=== PATIENT | female | born 1940 | race Caucasian/White ===

== ENCOUNTER 2016-10-30 17:11 | Inpatient (IN) | payer MEDICARE, BC, MEDICAID ==
[~2016-10-30] VITALS: Ht 147.3 cm; Wt 49.6 kg
[~2016-10-30 17:11] MED LIST: ASPIRIN 81M81 MG/TA2 PO; BETIMOL 0.5% OPH5 ML OU; COUMADIN 22.5 MG/TAB PO; COUMADIN 5MG5 MG/TAB PO; HCTZ 25MG TAB25 MG PO; IPRATROPIUM BROM3 M1 IH; MILK OF MA400 MG/52; NORVASC 5MG5 MG/TAB PO; PRIL40 PO; XALATAN EYE DROPS OU
[2016-10-30 18:16] LABS: BASO % 0.4 % (0.0-2.0); EOS # 0.3 (0.0-0.7); EOS % 3.2 % (0-4.0); GRAN % 75.7 % (42.2-75.2); HEMOGLOBIN 12.9 g/dl (12.5-16.0); LYMPH # 1.3 (1.2-3.4); LYMPH % 14.3 % (20.0-51.0); MEAN CELL VOLUME 100 fl (80.0-100.0); MEAN CORPUSCULAR HEMOGLOBIN 32 pg (27.0-31.0); MEAN CORPUSCULAR HGB CONC 32 g/dl (33.0-37.0); MEAN PLATELET VOLUME 10.7 fl (7.4-10.4); MONO # 0.6 (0.1-0.6); PLATELET COUNT 196 K/mm3 (130-400); RED BLOOD COUNT 4.01 M/mm3 (4.10-5.30); REDCELL DISTRIBUTION WIDTH-CV 15.7 % (11.5-14.5); WHITE BLOOD COUNT 9.3 K/mm3 (4.8-10.8)
[2016-10-30 18:18] LABS: PROTHROMBIN TIME 39.4 SECONDS (9.7-12.8)
[2016-10-30 18:22] LABS: ALBUMIN 4.4 gm/dL (3.5-5.0); BILIRUBIN,TOTAL 3.2 mg/dL (0.0-1.0); CALCIUM 10.3 mg/dL (8.4-10.2); CREATININE, serum 1.11 mg/dL (0.52-1.25); POTASSIUM 4.3 mmol/L (3.4-5.0); TOTAL PROTEIN 8.3 gm/dL (6.4-8.2)
[2016-10-30 18:29] LABS: INR 3.4 (0.8-3.0)
[2016-10-30 18:36] LABS: TROPONIN-I 0.036 ng/mL (0.000-0.034)
[2016-10-30] MEDS ORDERED: NUEDEXTA 20 MG-1 CAP PO (19:32)
[2016-10-30] MEDS ORDERED: K-DUR 10 MEQ T10 MEQ PO (19:32)
[2016-10-30] MEDS ORDERED: COUMADIN 5MG5 MG/TAB PO (19:36)
[2016-10-30] MEDS ORDERED: NORVASC 10MG10 MG PO (19:37)
[2016-10-30] MEDS ORDERED: LASIX 40MG TABL40 MG PO (19:58)
[2016-10-30] MEDS ORDERED: PRINIVIL40 MG PO (19:58)
[2016-10-30] MEDS ORDERED: COREG 3.123.125 MG/T PO (19:58)
[2016-10-30 21:20] VITALS: BP 168/71; PULSE 55; TEMP 97.9
[2016-10-30 22:31] LABS: PH 7 (5-8); SQUAMOUS EPITHELIAL 0-2 /hpf; URINE APPEARANCE Clear; URINE BACTERIA None Seen /hpf; URINE BILIRUBIN Negative (NEGATIVE); URINE BLOOD Negative (NEGATIVE); URINE COLOR Straw; URINE GLUCOSE Negative (NEGATIVE); URINE KETONE Negative (NEGATIVE); URINE UROBILINOGEN Negative (NEGATIVE); URINE WBC 0-2 /hpf
[2016-10-31] VITALS: BP 150/65; PULSE 53; TEMP 97.6
[2016-10-31 03:34] VITALS: BP 150/70; PULSE 50; TEMP 97.2
[2016-10-31 06:42] LABS: INR 2.7 (0.8-3.0); PROTHROMBIN TIME 31.3 SECONDS (9.7-12.8)
[2016-10-31 06:52] LABS: CALCIUM 9.7 mg/dL (8.4-10.2); CREATININE, serum 0.97 mg/dL (0.52-1.25); POTASSIUM 3.8 mmol/L (3.4-5.0)
[2016-10-31 07:16] VITALS: BP 143/83; PULSE 73; TEMP 97.6
[2016-10-31 07:27] LABS: TROPONIN-I 0.048 ng/mL (0.000-0.034)
[2016-10-31 11:18] VITALS: BP 127/60; PULSE 51; TEMP 98.1
[2016-10-31 15:23] VITALS: BP 126/68; PULSE 52; TEMP 97.9
[2016-10-31 20:01] VITALS: BP 139/63; PULSE 55; TEMP 98.3
[2016-11-01] VITALS (7 sets, daily range): BP systolic 88–152; BP diastolic 44–72; PULSE 55–80; TEMP 97.5–98.3
[2016-11-01 06:57] LABS: BASO % 0.2 % (0.0-2.0); EOS # 0.3 (0.0-0.7); EOS % 3.7 % (0-4.0); GRAN # 6.5 (1.4-6.5); GRAN % 76.9 % (42.2-75.2); HEMATOCRIT 38.3 % (37.0-47.0); HEMOGLOBIN 12.1 g/dl (12.5-16.0); LYMPH # 0.9 (1.2-3.4); MEAN CELL VOLUME 101 fl (80.0-100.0); MEAN CORPUSCULAR HEMOGLOBIN 32 pg (27.0-31.0); MEAN CORPUSCULAR HGB CONC 32 g/dl (33.0-37.0); MEAN PLATELET VOLUME 10.4 fl (7.4-10.4); MONO # 0.7 (0.1-0.6); MONO % 7.8 % (1.7-9.3); PLATELET COUNT 161 K/mm3 (130-400); RED BLOOD COUNT 3.81 M/mm3 (4.10-5.30); REDCELL DISTRIBUTION WIDTH-CV 15.6 % (11.5-14.5); WHITE BLOOD COUNT 8.5 K/mm3 (4.8-10.8)
[2016-11-01 07:13] LABS: CALCIUM 9.3 mg/dL (8.4-10.2); CREATININE, serum 0.96 mg/dL (0.52-1.25); MAGNESIUM 1.8 mg/dL (1.6-2.3)
[2016-11-02] VITALS (7 sets, daily range): BP systolic 100–129; BP diastolic 53–77; PULSE 44–98; TEMP 97.5–98.2
[2016-11-02 08:40] LABS: INR 2.9 (0.8-3.0); PROTHROMBIN TIME 33.3 SECONDS (9.7-12.8)
[2016-11-02 08:42] LABS: CALCIUM 9.6 mg/dL (8.4-10.2); CREATININE, serum 1.01 mg/dL (0.52-1.25); MAGNESIUM 1.9 mg/dL (1.6-2.3); POTASSIUM 3.8 mmol/L (3.4-5.0)
[2016-11-03 02:18] VITALS: BP 125/62; PULSE 54; TEMP 98.6
[2016-11-03 08:10] VITALS: BP 145/72; PULSE 52; TEMP 98.1
[2016-11-03 12:38] VITALS: BP 115/56; PULSE 56; TEMP 97.4
[2016-11-03 16:31] VITALS: BP 124/79; PULSE 52; TEMP 97.7
[2016-11-03 19:51] VITALS: BP 123/50; PULSE 51; TEMP 98.2
[2016-11-03 23:17] VITALS: BP 106/52; PULSE 50; TEMP 97.4
[2016-11-04 03:58] VITALS: BP 119/56; BP 133/61; PULSE 46; PULSE 92; TEMP 97.7; TEMP 98.8
[2016-11-04 06:31] LABS: MEAN CELL VOLUME 99 fl (80.0-100.0); MEAN CORPUSCULAR HGB CONC 32 g/dl (33.0-37.0); PLATELET COUNT 168 K/mm3 (130-400); RED BLOOD COUNT 3.57 M/mm3 (4.10-5.30); WHITE BLOOD COUNT 8.2 K/mm3 (4.8-10.8)
[2016-11-04 06:37] LABS: HEMATOCRIT 35.3 % (37.0-47.0); HEMOGLOBIN 11.3 g/dl (12.5-16.0); MEAN CORPUSCULAR HEMOGLOBIN 32 pg (27.0-31.0)
[2016-11-04 06:53] LABS: CALCIUM 9.1 mg/dL (8.4-10.2); CREATININE, serum 0.98 mg/dL (0.52-1.25); POTASSIUM 4.1 mmol/L (3.4-5.0)
[2016-11-04 07:20] VITALS: BP 127/63; PULSE 48; TEMP 97.6
[2016-11-04 11:25] LABS: INR 2.9 (0.8-3.0)
[2016-11-04 11:26] VITALS: BP 126/58; PULSE 47; TEMP 98
[2016-11-04 16:17] VITALS: BP 126/64; PULSE 54; TEMP 97.9
[2016-11-04 20:10] VITALS: BP 114/61; PULSE 56; TEMP 98.1
[2016-11-05 00:04] VITALS: BP 105/51; PULSE 49; TEMP 97
[2016-11-05 04:02] VITALS: BP 138/68; PULSE 43; TEMP 98.3
[2016-11-05 07:10] LABS: PROTHROMBIN TIME 34.5 SECONDS (9.7-12.8)
[2016-11-05 07:13] LABS: MEAN CELL VOLUME 101 fl (80.0-100.0); MEAN CORPUSCULAR HGB CONC 32 g/dl (33.0-37.0); MEAN PLATELET VOLUME 10.2 fl (7.4-10.4); PLATELET COUNT 189 K/mm3 (130-400); RED BLOOD COUNT 3.57 M/mm3 (4.10-5.30); REDCELL DISTRIBUTION WIDTH-CV 15.1 % (11.5-14.5); WHITE BLOOD COUNT 6.9 K/mm3 (4.8-10.8)
[2016-11-05 07:15] LABS: HEMATOCRIT 36.1 % (37.0-47.0); HEMOGLOBIN 11.4 g/dl (12.5-16.0); MEAN CORPUSCULAR HEMOGLOBIN 32 pg (27.0-31.0)
[2016-11-05 07:24] LABS: CALCIUM 9.4 mg/dL (8.4-10.2); CREATININE, serum 1.03 mg/dL (0.52-1.25); POTASSIUM 3.9 mmol/L (3.4-5.0)
[2016-11-05 08:15] VITALS: BP 119/60; PULSE 48; TEMP 97.4
[2016-11-05 12:05] VITALS: BP 119/65; PULSE 47; TEMP 97.7
[2016-11-05] MEDS ORDERED: NITRO-BID22 TD (12:13)
[2016-11-05] MEDS ORDERED: LASIX 40MG TABL40 MG PO (12:14)
[2016-11-05] MEDS ORDERED: VOLTAREN GEL 1%1 TU TP (12:35)
[2016-11-05] MEDS ORDERED: ULTRAM 50MG TAB50 MG PO (12:35)
[2016-11-05 13:44] VITALS: BP 119/65; PULSE 47; TEMP 97.7
== END 2016-11-05 14:25 | DRG 291 ==
LOC: COL.ER 17:11 → MEDICAL 19:05
PROVIDERS: Emergency Medicine; Internal Medicine Cardiovascular Disease; Internal Medicine Hospice and Palliative Medicine; Nurse Practitioner Family; Physician Assistant
DX: I11.0 Hypertensive heart disease with heart failure (principal); J96.01 Acute respiratory failure with hypoxia; D68.9 Coagulation defect, unspecified; I50.33 Acute on chronic diastolic (congestive) heart failure; Z66 Do not resuscitate; I08.3 Combined rheumatic disorders of mitral, aortic and tricuspid valves; Z86.711 Personal history of pulmonary embolism; I27.2 Other secondary pulmonary hypertension; J38.02 Paralysis of vocal cords and larynx, bilateral; Z79.01 Long term (current) use of anticoagulants
CPT/HCPCS: 99232-AI; 99239; J1940

== ENCOUNTER 2016-12-18 15:31 | Inpatient (IN) | payer MEDICARE, BC, MEDICAID ==
[~2016-12-18] VITALS: Ht 147.3 cm; Wt 47.2 kg
[2016-12-18] VITALS (207 sets, daily range): BP systolic 107–131; BP diastolic 67–79; PULSE 60–65; TEMP 97.9; O2SAT 91–100
[~2016-12-18 15:31] MED LIST changes: +COREG 3.123.125 MG/T PO; +K-DUR 10 MEQ T10 MEQ PO; +LASIX 40MG TABL40 MG PO; +NITRO-BID22 TD; +NORVASC 10MG10 MG PO; +NUEDEXTA 20 MG-1 CAP PO; +PRINIVIL40 MG PO; +ULTRAM 50MG TAB50 MG PO; +VOLTAREN GEL 1%1 TU TP
[2016-12-18 16:51] LABS: BASO % 0.5 % (0.0-2.0); EOS # 0.3 (0.0-0.7); EOS % 3.8 % (0-4.0); GRAN # 6.2 (1.4-6.5); GRAN % 76.3 % (42.2-75.2); LYMPH # 1.1 (1.2-3.4); LYMPH % 13.8 % (20.0-51.0); MEAN CELL VOLUME 99 fl (80.0-100.0); MEAN CORPUSCULAR HGB CONC 32 g/dl (33.0-37.0); MEAN PLATELET VOLUME 9.6 fl (7.4-10.4); MONO # 0.4 (0.1-0.6); MONO % 5.4 % (1.7-9.3); PLATELET COUNT 225 K/mm3 (130-400); RED BLOOD COUNT 3.14 M/mm3 (4.10-5.30); WHITE BLOOD COUNT 8.1 K/mm3 (4.8-10.8)
[2016-12-18 16:52] LABS: HEMATOCRIT 31.1 % (37.0-47.0); MEAN CORPUSCULAR HEMOGLOBIN 32 pg (27.0-31.0)
[2016-12-18 16:55] LABS: PROTHROMBIN TIME 42.8 SECONDS (9.7-12.8)
[2016-12-18 16:58] LABS: PARTIAL THROMBOPLASTIN TIME 44.1 SECONDS (26.0-37.0)
[2016-12-18 17:00] LABS: ADJUSTED CALCIUM 9.8 mg/dL (8.4-10.2); ALBUMIN 3.7 gm/dL (3.5-5.0); BILIRUBIN,TOTAL 1.7 mg/dL (0.0-1.0); CALCIUM 9.6 mg/dL (8.4-10.2); CREATININE, serum 0.98 mg/dL (0.52-1.25); TOTAL PROTEIN 7.7 gm/dL (6.4-8.2)
[2016-12-18 17:03] LABS: INR 3.7 (0.8-3.0)
[2016-12-18 17:13] LABS: TROPONIN-I 0.05 ng/mL (0.000-0.034)
[2016-12-18] MEDS ORDERED: COUMADIN 5MG5 MG/TAB PO (19:53)
[2016-12-18] MEDS ORDERED: NUEDEXTA 20 MG-1 CAP PO (21:55)
[2016-12-18 22:42] LABS: ARTERIAL BLD GAS O2 SATURATION 96.1 % (92-100); ARTERIAL BLD GAS TCO2 CT 30.5; ARTERIAL BLOOD GAS HCO3 29.1 meq/L (22-26); ARTERIAL BLOOD GAS pH 7.42 (7.35-7.45); OXYHEMOGLOBIN 94.9 %
[2016-12-18 22:44] LABS: ALLEN TEST NO; ATS? YES
[2016-12-18 23:06] LABS: MAGNESIUM 1.7 mg/dL (1.6-2.3)
[2016-12-19] VITALS (676 sets, daily range): BP systolic 90–130; BP diastolic 54–67; PULSE 51–63; TEMP 97.2–98; O2SAT 85–100
[2016-12-19 06:01] LABS: BASO % 0.7 % (0.0-2.0); EOS # 0.3 (0.0-0.7); EOS % 5.5 % (0-4.0); GRAN # 3.9 (1.4-6.5); GRAN % 69.5 % (42.2-75.2); LYMPH % 17.1 % (20.0-51.0); MEAN CELL VOLUME 101 fl (80.0-100.0); MEAN CORPUSCULAR HGB CONC 32 g/dl (33.0-37.0); MEAN PLATELET VOLUME 9.8 fl (7.4-10.4); MONO # 0.4 (0.1-0.6); MONO % 6.8 % (1.7-9.3); PLATELET COUNT 192 K/mm3 (130-400); RED BLOOD COUNT 2.86 M/mm3 (4.10-5.30); REDCELL DISTRIBUTION WIDTH-CV 17.1 % (11.5-14.5); WHITE BLOOD COUNT 5.6 K/mm3 (4.8-10.8)
[2016-12-19 06:09] LABS: HEMATOCRIT 28.9 % (37.0-47.0); HEMOGLOBIN 9.1 g/dl (12.5-16.0); MEAN CORPUSCULAR HEMOGLOBIN 32 pg (27.0-31.0)
[2016-12-19 06:20] LABS: CALCIUM 9.3 mg/dL (8.4-10.2); CREATININE, serum 1.07 mg/dL (0.52-1.25); POTASSIUM 3.8 mmol/L (3.4-5.0)
[2016-12-19 06:29] LABS: PROTHROMBIN TIME 35.3 SECONDS (9.7-12.8)
[2016-12-19 06:31] LABS: INR 3.1 (0.8-3.0)
[2016-12-19 07:14] LABS: TROPONIN-I 0.052 ng/mL (0.000-0.034)
[2016-12-20] VITALS (8 sets, daily range): BP systolic 101–143; BP diastolic 57–83; PULSE 52–101; TEMP 97.4–97.8
[2016-12-20 07:33] LABS: MEAN CELL VOLUME 101 fl (80.0-100.0); MEAN CORPUSCULAR HGB CONC 31 g/dl (33.0-37.0); MEAN PLATELET VOLUME 9.8 fl (7.4-10.4); PLATELET COUNT 208 K/mm3 (130-400); RED BLOOD COUNT 2.87 M/mm3 (4.10-5.30); REDCELL DISTRIBUTION WIDTH-CV 16.9 % (11.5-14.5); WHITE BLOOD COUNT 6.7 K/mm3 (4.8-10.8)
[2016-12-20 07:34] LABS: PROTHROMBIN TIME 22.8 SECONDS (9.7-12.8)
[2016-12-20 07:40] LABS: CALCIUM 9.3 mg/dL (8.4-10.2); CREATININE, serum 1.03 mg/dL (0.52-1.25); POTASSIUM 4.1 mmol/L (3.4-5.0)
[2016-12-20 08:12] LABS: HEMATOCRIT 29.1 % (37.0-47.0); HEMOGLOBIN 9.1 g/dl (12.5-16.0); MEAN CORPUSCULAR HEMOGLOBIN 32 pg (27.0-31.0)
[2016-12-21 03:51] VITALS: BP 113/56; PULSE 49; TEMP 97.5
[2016-12-21 07:43] LABS: INR 1.8 (0.8-3.0); PROTHROMBIN TIME 20.4 SECONDS (9.7-12.8)
[2016-12-21 07:45] LABS: BASO % 0.5 % (0.0-2.0); EOS # 0.2 (0.0-0.7); GRAN # 4.3 (1.4-6.5); GRAN % 74.5 % (42.2-75.2); LYMPH # 0.8 (1.2-3.4); LYMPH % 13.8 % (20.0-51.0); MEAN CELL VOLUME 101 fl (80.0-100.0); MEAN CORPUSCULAR HGB CONC 31 g/dl (33.0-37.0); MEAN PLATELET VOLUME 9.4 fl (7.4-10.4); MONO # 0.4 (0.1-0.6); MONO % 6.7 % (1.7-9.3); PLATELET COUNT 239 K/mm3 (130-400); RED BLOOD COUNT 3.22 M/mm3 (4.10-5.30); REDCELL DISTRIBUTION WIDTH-CV 16.8 % (11.5-14.5); WHITE BLOOD COUNT 5.8 K/mm3 (4.8-10.8)
[2016-12-21 08:06] LABS: CALCIUM 9.8 mg/dL (8.4-10.2); CREATININE, serum 1.13 mg/dL (0.52-1.25); POTASSIUM 3.8 mmol/L (3.4-5.0)
[2016-12-21 08:07] LABS: HEMATOCRIT 32.5 % (37.0-47.0); HEMOGLOBIN 10.2 g/dl (12.5-16.0); MEAN CORPUSCULAR HEMOGLOBIN 32 pg (27.0-31.0)
[2016-12-21 08:34] VITALS: BP 140/86; PULSE 61; TEMP 98.1
[2016-12-21] MEDS ORDERED: PRINIVIL20 MG PO (10:58)
[2016-12-21] MEDS ORDERED: ASPI325T6 PO (10:58)
[2016-12-21] MEDS ORDERED: RANEXA 500MG T500 MG PO (10:58)
[2016-12-21] MEDS ORDERED: LASIX 80MG TABL80 MG PO (10:59)
[2016-12-21 12:22] VITALS: BP 125/58; PULSE 58; TEMP 98.3
== END 2016-12-21 15:12 | disposition home health service (06) | DRG 189 ==
LOC: COL.ER 15:31 → ICU 18:35 → MEDICAL 12-19 14:47
PROVIDERS: Emergency Medicine; Internal Medicine; Internal Medicine Cardiovascular Disease; Nurse Practitioner Family
DX: J96.01 Acute respiratory failure with hypoxia (principal); I50.33 Acute on chronic diastolic (congestive) heart failure; D68.4 Acquired coagulation factor deficiency; Z66 Do not resuscitate; I11.0 Hypertensive heart disease with heart failure; H40.9 Unspecified glaucoma; I35.0 Nonrheumatic aortic (valve) stenosis; D53.9 Nutritional anemia, unspecified; J38.00 Paralysis of vocal cords and larynx, unspecified; Z86.711 Personal history of pulmonary embolism; Z86.718 Personal history of other venous thrombosis and embolism; Z79.01 Long term (current) use of anticoagulants; Z87.891 Personal history of nicotine dependence
CPT/HCPCS: 99223-AI; 99233-AI; 99239; J1940; J2270; J2405

== ENCOUNTER → 2016-12-24 | Outpatient (CLI) | payer MEDICARE, BC, MEDICAID ==
[~2016-12-24] MED LIST changes: +ASPI325T6 PO; +LASIX 80MG TABL80 MG PO; +PRINIVIL20 MG PO; +RANEXA 500MG T500 MG PO
[2016-12-24 12:44] LABS: CALCIUM 10.2 mg/dL (8.4-10.2); CREATININE, serum 1.59 mg/dL (0.52-1.25); POTASSIUM 4.2 mmol/L (3.4-5.0)
== END ==
LOC: ZCOL.LAB 12:22
PROVIDERS: Family Medicine
DX: I10 Essential (primary) hypertension (principal)

== ENCOUNTER → 2016-12-27 | Outpatient (CLI) | payer MEDICARE, BC, MEDICAID ==
[2016-12-27 16:01] LABS: CALCIUM 10.4 mg/dL (8.4-10.2); CREATININE, serum 1.68 mg/dL (0.52-1.25)
== END ==
LOC: ZCOL.LAB 13:09
DX: E87.1 Hypo-osmolality and hyponatremia (principal)